=== PATIENT | male | born 1970 | race Caucasian/White ===

== ENCOUNTER 2021-03-21 11:15 | Outpatient (REF) | payer BC, SELFPAY ==
--- NOTE | ~2021-03-21 | XR_ITS ---
EXAMINATION: XR CHEST CLINICAL INFORMATION: Shortness of breath. History of Covid infection. COMPARISON: Previous chest and left rib x-rays March 2019 TECHNIQUE: 2 views of the chest were obtained. FINDINGS: The cardiac and mediastinal contours are stable. The lungs are clear. There is no pleural effusion or pneumothorax. There is mild curvature of the midthoracic spine to the right. Bony structures are otherwise unremarkable. XR/XR chest 2V IMPRESSION: No evidence for acute disease in the chest.
[2021-03-21 16:10] LABS: MANUAL DIFF FLAG NO
[2021-03-21 16:15] LABS: Basophils Absolute Auto 0.1 X10*3/uL (0.0-0.2); Basophils Percent Auto 0.5 % (0-2); Eosinophils Absolute Auto 0.3 X10*3/uL (0.0-0.4); Eosinophils Percent Auto 2.7 % (0-4); Hematocrit 48.8 % (42.0-52.0); Hemoglobin 15.9 g/dl (14.0-18.0); Imm Gran Abs Auto 0.04 X10*3/uL (0.00-0.03); Imm Gran Pct Auto 0.4 % (0.0-0.4); Lymphocytes Absolute Auto 2.6 X10*3/uL (1.2-4.9); Lymphocytes Percent Auto 24.1 % (20-40); Mean Corpuscular HGB Conc 32.6 g/dl (31.0-36.0); Mean Corpuscular Hemoglobin 29.2 pg (27.0-33.0); Mean Corpuscular Volume 89.5 fL (80.0-98.0); Mean Platelet Volume 9.8 fL (9.4-12.4); Monocytes Absolute Auto 0.7 X10*3/uL (0.1-1.2); Monocytes Percent Auto 6.7 % (2-11); Neutrophils Absolute Auto 7.2 x10*3/uL (2.0-8.3); Neutrophils Percent Auto 65.6 % (45-73); Platelet Count 366 X10*3/uL (160-400); Red Blood Count 5.45 X10*6/uL (4.60-5.80); Red Cell Distribution Width 12.7 % (11.0-16.0)
[2021-03-21 16:47] LABS: Alanine Aminotransferase 47 U/L (0-40); Albumin Level 4.2 g/dL (3.5-5.0); Alkaline Phosphatase 92 U/L (39-117); Anion Gap 12 (12-20); Aspartate Amino Transferase 28 U/L (5-37); Bilirubin Total 0.4 mg/dL (0.0-1.0); Blood Urea Nitrogen 10 mg/dL (9-16); C Reactive Protein 0.55 mg/dL (< or = 0.50); Calcium 9.9 mg/dL (8.4-10.2); Carbon Dioxide 29 mmol/L (22-29); Chloride 107 mmol/L (96-108); Estimated Glomerular Filt Rate > 60; Glucose Random 92 mg/dL (60-115); Sodium 143 mmol/L (135-145); Total Protein 7.6 g/dL (6.5-8.0)
[2021-03-21 16:58] LABS: Erythrocyte Sedimentation Rate 3 MM/HR (0-15)
== END 2021-03-21 11:16 | disposition home or self-care (01) ==
LOC: HO.XRAY 11:15
PROVIDERS: PCP Internal Medicine; Visit Provider Internal Medicine
DX: R06.02 Shortness of breath (principal); R51.9 Headache, unspecified; Z86.16 Personal history of COVID-19
CPT/HCPCS: 36415; 71046; 80053; 85025; 85652; 86140

== ENCOUNTER 2022-08-02 15:04 | Outpatient (REF) | payer BC, SELFPAY ==
[2022-08-02 15:22] LABS: MANUAL DIFF FLAG NO
[2022-08-02 15:44] LABS: Basophils Absolute Auto 0.1 X10*3/uL (0.0-0.2); Basophils Percent Auto 0.6 % (0-2); Eosinophils Absolute Auto 0.2 X10*3/uL (0.0-0.4); Eosinophils Percent Auto 1.9 % (0-4); Hematocrit 49.6 % (42.0-52.0); Hemoglobin 16.7 g/dl (14.0-18.0); Imm Gran Abs Auto 0.04 X10*3/uL (0.00-0.03); Imm Gran Pct Auto 0.4 % (0.0-0.4); Lymphocytes Absolute Auto 2.3 X10*3/uL (1.2-4.9); Lymphocytes Percent Auto 20.7 % (20-40); Mean Corpuscular HGB Conc 33.7 g/dl (31.0-36.0); Mean Corpuscular Hemoglobin 29.9 pg (27.0-33.0); Mean Corpuscular Volume 88.9 fL (80.0-98.0); Mean Platelet Volume 10.2 fL (9.4-12.4); Monocytes Absolute Auto 0.8 X10*3/uL (0.1-1.2); Monocytes Percent Auto 7.3 % (2-11); Neutrophils Absolute Auto 7.7 x10*3/uL (2.0-8.3); Neutrophils Percent Auto 69.1 % (45-73); Platelet Count 341 X10*3/uL (160-400); Red Blood Count 5.58 X10*6/uL (4.60-5.80); Red Cell Distribution Width 12.9 % (11.0-16.0); White Blood Count 11.2 X10*3/uL (4.8-10.8)
[2022-08-02 16:29] LABS: Erythrocyte Sedimentation Rate 7 MM/HR (0-15)
[2022-08-02 16:30] LABS: Alanine Aminotransferase 64 U/L (0-40); Albumin Level 4.3 g/dL (3.5-5.0); Alkaline Phosphatase 78 U/L (39-117); Amylase 36 U/L (28-100); Anion Gap 14 (12-20); Aspartate Amino Transferase 40 U/L (5-37); Blood Urea Nitrogen 12 mg/dL (9-16); C Reactive Protein 1.67 mg/dL (< or = 0.50); Calcium 9.6 mg/dL (8.4-10.2); Carbon Dioxide 23 mmol/L (22-29); Chloride 106 mmol/L (96-108); Estimated Glomerular Filt Rate > 60; Glucose Random 91 mg/dL (60-115); Lipase 26 U/L (8-78); Potassium 4.2 mmol/L (3.3-5.1); Sodium 139 mmol/L (135-145); Total Protein 7.6 g/dL (6.5-8.0)
[2022-08-02 18:00] LABS: Appearance Urine Clear; Color Urine Dark Yellow; Glucose Urine UA Negative (Negative); Leukocyte Esterase Urine Negative (Negative); Nitrite Urine Negative (Negative); Specific Gravity - Urine >= 1.030 (1.005-1.025); UMIC TRIGGER UA YES; Urine Blood Negative (Negative); Urine Ketones 40 mg/dL (Negative); Urine Protein 30 (1+) mg/dL (Neg-Trace)
[2022-08-02 18:17] LABS: Bacteria Urine None Seen (None Seen); RBC Urine 0-2 /HPF (0-2); Squamous Epithelial Cell Urine 0-2 /HPF (0-2); WBC Urine 0-5 /HPF (0-5)
== END 2022-08-02 15:05 | disposition home or self-care (01) ==
LOC: HO.LAB 15:04
PROVIDERS: PCP Internal Medicine; Visit Provider Internal Medicine
DX: R10.9 Unspecified abdominal pain (principal); R19.7 Diarrhea, unspecified
CPT/HCPCS: 36415; 80053; 81001; 82150; 83690; 85025; 85652; 86140

== ENCOUNTER 2022-08-03 15:24 | Outpatient (REF) | payer BC, SELFPAY ==
--- NOTE | ~2022-08-03 | US_ITS ---
EXAMINATION: US ABDOMEN COMPLETE CLINICAL INFORMATION: Epigastric pain. COMPARISON: CT abdomen and pelvis 11/15/2010 TECHNIQUE: Real-time imaging of the abdominal viscera. Technically suboptimal study secondary to bowel gas and body habitus. FINDINGS: PANCREAS: The visualized portions of the pancreas are unremarkable but a large portion of the gland is obscured by bowel gas. ABDOMINAL AORTA: The proximal and mid abdominal aorta is not seen secondary to overlying bowel gas. The distal abdominal aorta is normal in caliber without aneurysm. INFERIOR VENA CAVA: Visualized portions are normal. LIVER: The liver is normal in size. The liver contour is normal. There is diffuse increased liver parenchymal echogenicity, consistent with hepatic steatosis. No focal hepatic lesion. There is no intrahepatic biliary duct dilatation seen. GALLBLADDER: Normal. The gallbladder is physiologically distended without evidence of stones, sludge, polyps, wall thickening or pericholecystic fluid. COMMON BILE DUCT: Normal in caliber measuring 0.54 cm in diameter. RIGHT KIDNEY: Normal. No hydronephrosis. No renal calculi or focal parenchymal lesions. The kidney measures 12.3 cm in maximum dimension. LEFT KIDNEY: Normal. No hydronephrosis. No renal calculi or focal parenchymal lesions. The kidney measures 13.3 cm in maximum dimension. SPLEEN: The spleen is enlarged measuring 15.1 cm in maximum dimension. On the 11/15/2010 CT, the spleen measured 14 cm. FREE FLUID: None. US/US abdomen complete IMPRESSION: 1. Hepatic steatosis. 2. Splenomegaly.
== END 2022-08-03 15:25 | disposition home or self-care (01) ==
LOC: HO.HMGCX 15:24
PROVIDERS: PCP Internal Medicine; Visit Provider Internal Medicine
DX: R10.13 Epigastric pain (principal)
CPT/HCPCS: 76700

== ENCOUNTER 2022-10-31 14:02 | Emergency (ER) | payer BC, SELFPAY ==
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
[2022-10-31 14:35] VITALS: BP 164/113; PULSE 78; RESP 16; TEMP 37.3; O2SAT 97; BMI 33.3
[2022-10-31] MEDS: Acetaminophen 325 MG TABLET 975 MG PO (18:48)
[2022-10-31] MEDS: Ibuprofen 400 MG TABLET PO (18:48)
== END 2022-10-31 19:07 | disposition home or self-care (01) ==
PROVIDERS: Emergency Provider Student in an Organized Health Care Education/Training Program; PCP Internal Medicine
DX: S06.0XAA Concussion with loss of consciousness status unknown, initial encounter (principal); S00.03XA Contusion of scalp, initial encounter; S80.212A Abrasion, left knee, initial encounter; S90.412A Abrasion, left great toe, initial encounter; S50.01XA Contusion of right elbow, initial encounter; V03.00XA Pedestrian on foot injured in collision with car, pick-up truck or van in nontraffic accident, initial encounter; M54.2 Cervicalgia; M54.50 Low back pain, unspecified; M25.572 Pain in left ankle and joints of left foot; Y93.01 Activity, walking, marching and hiking; Y92.414 Local residential or business street as the place of occurrence of the external cause; Y99.9 Unspecified external cause status
CPT/HCPCS: 70450; 72100; 72125; 73562; 73600; 73620; 99283; 99284

== ENCOUNTER 2023-01-11 13:51 | Outpatient (REF) | payer BC, SELFPAY ==
--- NOTE | ~2023-01-11 | XR_ITS ---
EXAMINATION: XR LUMBOSACRAL SPINE WITH OBLIQUES CLINICAL INFORMATION: Lumbar radiculopathy. COMPARISON: Radiographs dated 10/31/2022. TECHNIQUE: AP and lateral (neutral, flexion and extension) views of the lumbosacral spine are submitted. FINDINGS: There is mild bony demineralization. Vertebral body heights and alignment are normal. The lumbar disc spaces are well-maintained. No acute fracture or spondylolisthesis is seen. There is no instability with flexion or extension. There is multi-level mild anterior spondylosis. The posterior elements are intact. The paravertebral soft tissues are unremarkable. XR/XR lumbar spine 4V min IMPRESSION: 1. No acute fracture or spondylolisthesis is seen. 2. The lumbar disc spaces are well-maintained. 3. There is multi-level mild anterior spondylosis. 4. No instability is seen with flexion or extension.
== END 2023-01-11 13:52 | disposition home or self-care (01) ==
LOC: HO.HOSX 13:51
PROVIDERS: PCP Internal Medicine; Referring Provider Internal Medicine; Visit Provider Physician Assistant
DX: M54.16 Radiculopathy, lumbar region (principal)
CPT/HCPCS: 72110

== ENCOUNTER 2023-01-11 13:51 | Outpatient (AMB) | payer BC, SELFPAY ==
--- NOTE | 2023-01-11 13:58 | HO.SPINEOV ---
Intake Intake Visit Reasons: Low back pain Intake Note: Mr. Saha is here today c/o low back pain. [employer] Required: No Allergies No Known Allergies [No Known Allergies*] Allergy (Verified 10/31/22 14:38) Assessment & Plan Assessment & Plan (1) Lumbar radiculopathy: Code(s): M54.16 - Radiculopathy, lumbar region Plan Dear Dr Romero, Thank you for referring Mr Saha to our office today. He is a very nice 52-year-old gentleman with previous history of an L5-S1 diskectomy done in 1999 who presents to the office today for progressive severe right-sided lumbar radiculopathy which started a few months ago. It began with milder symptoms, but progressed pretty rapidly to his severe pain. It radiates from his low back down into his right buttock, goes into his right groin, goes into his posterior thigh down into his calf. It does not go into his foot. The symptoms are aggravated with standing and walking and better if he sits. He does not report any specific weakness, however the leg does feel like it may go out from underneath him from time to time. He has been taking ibuprofen and Tylenol around the clock. He did try steroids twice and that did help but the fact was temporary. He has been doing therapy exercises now for a few months as well as traction and inversion tables without any significant improvement. He is getting to the point now where he is can barely get up and walk around and seems to have significantly affected his quality of life. He continues to work but he has to work in a recumbent position in his office. Thankfully his employer bought him a chair to accommodate him. PMH: No significant medical history, history of lumbar diskectomy in 1999 Social hx: He does not smoke, social alcohol no drug use Medications: Citalopram, bupropion, Tylenol and ibuprofen Allergies: None Physical exam: He has a significant amount of pain with standing and walking, he has no focal motor deficits or reflex changes. Imaging review: Lumbar MRI done at [facility] shows multilevel degenerative disc disease, the only nerve impingement I can see is on the right at L4-5 in the lateral recess there appears to be narrowing. It is not a great study, there is motion artifact. Impression: 52-year-old male with a previous history of a left L5-S1 microdiskectomy about 20 years ago, presents now with a progressive worsening right L5 radiculopathy which I think is related to the narrowing of the lateral recess at the L4-5 disc space. There is some motion artifact which limits the quality of the study but is is the only area that I see with narrowing near the L5 nerve He has been doing ibuprofen, Tylenol, therapy exercises, inversion table, traction, heat, ice and things only seem to be getting worse. He has no focal motor deficits. I think at this point we could consider an L4-5 decompression on the right. I am going to send him for standing flexion-extension x-rays to rule out occult instability. We briefly reviewed the risks and benefits of surgery. I will review his imaging with Dr. Ortiz and get back to the patient with a final plan. Pt was given risk and benefits of surgery including but not limited to infection, hematoma , nerve injury,durotomy, weakness,bowel/bladder injury, persistent pain, as well as the option to continue with conservative treatment and patient wishes to proceed with surgery. Pt is aware they should stop their motrin, aspirin 7 days prior to surgery. All questions were answered to the best of our ability. If there is anything about this patients medical history that we have overlooked or concerns you have about us proceeding with surgery we would appreciate any input you can offer. Thank you for allowing us to care for your patient. The total time spent with this visit with this patient was 45 minutes reviewing history, physical exam, lumbar imaging review, and implementation of treatment plan or further diagnostic testing Keyur Ortiz MD,PhD [facility] Orders: Orders XR lumbar spine 4V min Today M54.16 - Radiculopathy, lumbar region Coding Level of Care Code New Pt Level 4 (48452) Diagnoses Lumbar radiculopathy M54.16
== END 2023-01-11 15:15 | disposition home or self-care (01) ==
PROVIDERS: PCP Internal Medicine; Referring Provider Internal Medicine; Visit Provider Physician Assistant
DX: M54.16 Radiculopathy, lumbar region (principal)
CPT/HCPCS: 99204

== ENCOUNTER → 2023-03-14 13:58 | Outpatient (BNV) | payer BC, SELFPAY | PROVIDERS: PCP Internal Medicine; Visit Provider Internal Medicine | DX: I45.81 Long QT syndrome (principal) | CPT/HCPCS: 93010 ==

== ENCOUNTER 2023-03-28 10:14 | Day surgery (SDC) | payer BC, SELFPAY ==
--- NOTE | 2023-03-14 | ECG_ITS ---
Test Reason : preop Blood Pressure : / mmHG Vent. Rate : 073 BPM Atrial Rate : 073 BPM P-R Int : 160 ms QRS Dur : 108 ms QT Int : 446 ms P-R-T Axes : 055 -38 022 degrees QTc Int : 491 ms Normal sinus rhythm Left axis deviation Minimal voltage criteria for LVH, may be normal variant ( R in aVL ) Prolonged QT Abnormal ECG When compared with ECG of 18-DEC-2012 07:28, No significant change was found Referred By: Alexsandra Jolly Electronically Signed By:CHASTITY CRISTINA
[2023-03-14 13:23] VITALS: BMI 32.8
[2023-03-14 13:30] VITALS: BP 158/95; PULSE 75; RESP 20; O2SAT 97
--- NOTE | 2023-03-14 13:41 | HO.ANESPROP2 ---
Documented by User: Alexsandra Jolly NP 03/14/23 14:07 HPI - Anesthesia Eval Consult details Narrative: 52yo M for Right L4-5 Jimbo Laminotomy No recent illness. No CP/SOB within very limited activity d/t pain Multiple episodes of awareness under anesthesia. GERD. Well controlled with ppi PMFSH Active Problems Active Problems: All Active Problems (Updated 03/14/23 @ 13:18 by Gricelda Mills RN) Lumbar radiculopathy (Acute) Past Medical History Medical History Cellulitis Hx of fracture of ankle Anxiety Gout GERD (gastroesophageal reflux disease) Obesity (BMI 30.0-34.9) Other chest pain HTN (hypertension) Colitis Gastroenteritis Epigastric abdominal pain Nocturia Back pain Depression Family History Family history of problems with anesthesia: No Surgical History Surgical History History of ankle surgery Hx of arthroscopy of right knee H/O colonoscopy Hx of right inguinal hernia repair Hx of lumbar discectomy History of Problems with Anesthesia: Yes (Awareness under anesthesia. Has awoken mid surgery under all types of anesthesia. Reports extensive movement ( push up ) during lumbar discectomy.) Social History Social History Are you a primary home care coordinator to a significant other at home: No Patient Tobacco Use Status: Never used Tobacco Use of substances other than those prescribed or required for medical reasons: No Have you been hit, kicked, punched, or otherwise hurt by someone within the past year? If so, by whom?: No Advance Directives: No Advance Directives Information Provided: Yes Advance Directives on File: No Recently lost weight without trying: No Eating poorly because of decreased appetite: No Nutrition Risks: No Nutritional Risk Meds Allergies Allergy/AdvReac Type Severity Reaction Status Date / Time No Known Allergies Allergy Verified 03/28/23 10:28 [No Known Allergies*] Home Medications Medication Instructions Recorded Confirmed Last Taken Type bupropion HCl 150 mg 24 hr tablet, 150 mg PO DAILY 03/13/23 03/28/23 Unknown History extended release citalopram 40 mg tablet 40 mg PO DAILY 03/13/23 03/28/23 Unknown History tadalafil 10 mg tablet 10 mg PO Q3D PRN Sexual Activity 03/13/23 03/28/23 Unknown History Exam Height,Weight and Vital Signs: Height 6 ft 5 in Weight 125.645 kg Last Vital Signs Pulse 75 03/14/23 13:30 Resp 20 03/14/23 13:30 BP 158/95 H 03/14/23 13:30 Pulse Ox 97 03/14/23 13:30 O2 Del Method Room Air 03/14/23 13:30 Airway Mallampati Class: II TM Dist: >3cm Neck ROM: Full Loose/Missing/Broken Teeth: Yes (broken lower sides) Heart: RRR Lungs: CTAB Assessment and Plan Assessment Anesthesia Assessment: Anesthesia Plan Discussed and PAT Visit Final Anesthetic Review Family History of Problems with Anesthesia: No History of Problems with Anesthesia: Yes (Awareness under anesthesia. Has awoken mid surgery under all types of anesthesia. Reports extensive movement ( push up ) during lumbar discectomy.) Documented by User: Lenin Sarabia MD 03/28/23 10:36 PMFSH Past Medical History Medical History Cellulitis Hx of fracture of ankle Anxiety Gout GERD (gastroesophageal reflux disease) Obesity (BMI 30.0-34.9) Other chest pain HTN (hypertension) Colitis Gastroenteritis Epigastric abdominal pain Nocturia Back pain Depression Surgical History Surgical History History of ankle surgery Hx of arthroscopy of right knee H/O colonoscopy Hx of right inguinal hernia repair Hx of lumbar discectomy Social History Social History Are you a primary home care coordinator to a significant other at home: No Patient Tobacco Use Status: Never used Tobacco Use of substances other than those prescribed or required for medical reasons: No Have you been hit, kicked, punched, or otherwise hurt by someone within the past year? If so, by whom?: No Advance Directives: No Advance Directives Information Provided: Yes Advance Directives on File: No Recently lost weight without trying: No Eating poorly because of decreased appetite: No Nutrition Risks: No Nutritional Risk Meds Allergies Allergy/AdvReac Type Severity Reaction Status Date / Time No Known Allergies Allergy Verified 03/28/23 10:28 [No Known Allergies*] Home Medications Medication Instructions Recorded Confirmed Last Taken Type bupropion HCl 150 mg 24 hr tablet, 150 mg PO DAILY 03/13/23 03/28/23 Unknown History extended release citalopram 40 mg tablet 40 mg PO DAILY 03/13/23 03/28/23 Unknown History tadalafil 10 mg tablet 10 mg PO Q3D PRN Sexual Activity 03/13/23 03/28/23 Unknown History Exam Airway Mallampati Class: III Assessment and Plan Final Anesthetic Review NPO: Yes ASA Class: II Final Preanesthetic Review: No Changes in Pt Med Stat, Meds/Allgs Chart Reviewed, Consent Obtained/Reviewed and Anes Risks/Benef Reviewed Patient Risk: Intermediate Procedure Risk: Intermediate Assessment/Block/Sedation in SS: Assess/Block/Sedation- Anesthetic Plan Anesthetic Plan: GA Disposition: Standard PACU
[2023-03-14 14:33] LABS: Hematocrit 47.6 % (42.0-52.0); Hemoglobin 15.9 g/dl (14.0-18.0); Mean Corpuscular HGB Conc 33.4 g/dl (31.0-36.0); Mean Corpuscular Hemoglobin 29.6 pg (27.0-33.0); Mean Corpuscular Volume 88.6 fL (80.0-98.0); Mean Platelet Volume 9.5 fL (9.4-12.4); Platelet Count 344 X10*3/uL (160-400); Red Blood Count 5.37 X10*6/uL (4.60-5.80); White Blood Count 8.8 X10*3/uL (4.8-10.8)
[2023-03-14 15:11] LABS: Anion Gap 13 (12-20); Blood Urea Nitrogen 8 mg/dL (9-16); Calcium 9.5 mg/dL (8.4-10.2); Carbon Dioxide 28 mmol/L (22-29); Chloride 104 mmol/L (96-108); Creatinine Clr Calc Pharmacy 145.7; Estimated Glomerular Filt Rate > 60; Glucose Random 76 mg/dL (60-115); Potassium 4.4 mmol/L (3.3-5.1); Sodium 141 mmol/L (135-145)
[2023-03-28] VITALS (7 sets, daily range): BP systolic 124–201; BP diastolic 76–112; PULSE 65–85; RESP 14–18; TEMP 36.4–36.6; O2SAT 94–97; BMI 33.1
--- NOTE | ~2023-03-28 | FL_ITS ---
EXAMINATION: XR FLUOROSCOPY WITH IMAGES CLINICAL INFORMATION: Right L4-L5 hemilaminotomy. COMPARISON: None available. TECHNIQUE: Fluoroscopy Supervised By: Dr. Ortiz. Fluoroscopy Time: 0.0 minutes Cumulative Dose: 4.58 mGy-cm DAP: 0.0797 Gy-cm2 Images: 2 FINDINGS: Fluoroscopic guidance was provided for procedure. A catheter projects at the level of the lower lumbar spine.. Please refer to operative report for more detailed evaluation. FL/FL guidance in OR IMPRESSION: Fluoroscopic guidance was provided for procedure.
--- NOTE | 2023-03-28 06:57 | P.HPSUR_ITS ---
Pre-Procedural Eval Section A - 24 Hr Update-Section A only Date of Service: 03/28/23 The patient is an INPATIENT: No Changes since office visit: No Cold of Flu in the past 2 weeks, No New Medical Problems, No Changes in Medication and No Patient answered all questions The patient has been examined within 24 hours of the surgical procedure. The History & Physical has been completed within 30 days and I have reviewed it.: No Section B - Complete if H&P > 30 days Chief Complaint: Radiculopathy, lumbar region Allergies: Allergies Allergy/AdvReac Type Severity Reaction Status Date / Time No Known Allergies Allergy Verified 10/31/22 14:38 [No Known Allergies*] Review of Systems Sugical H&P ROS: Negative: Constitution, Cardiovascular, Respiratory, Neurological, Psychiatric, Hem-Onc, Allergic/Immunologic, Gastrointestinal, Genitourinary, Musculoskeletal, Integumentary, Endocrine and Eyes/Ears/No se/Throat Exam Surgical H&P Exam: Not Evaluated: HEENT, Not Evaluated: Heart, Not Evaluated: Lungs, Not Evaluated: Extremities, Not Evaluated: Abdomen, Not Evaluated: Skin and Not Evaluated: Neurological Plan Diagnosis/Plan: Unchanged right L4-5 decompression Time Spent With Patient Time: Total time managing care of this patient today ___6_ minutes.
[2023-03-28] MEDS: Gabapentin 300 MG CAPSULE PO (10:43)
[2023-03-28] MEDS: methocarbamoL 750 MG TABLET PO (10:43)
[2023-03-28] MEDS: Lactated Ringers 1,000 ML 100 ML IVCONT (10:58)
--- NOTE | 2023-03-28 12:14 | P.OP_ITS ---
Operative Note Operative Note Date of Service: 03/28/23 Narrative: Preoperative Diagnosis: L4-5 spinal stenosis/lateral recess stenosis/neural foraminal stenosis Operation: Right L4-5 Laminotomy, Partial facetectomy and foraminotomy with use of microscope Consent Informed Consent was obtained for this operation. I have explained the nature, purpose and benefits of the operation. I have discussed the risks and benefit of the operation including possible complications or adverse events with patient/family. Alternative(s) were discussed with the patient with their relative benefits and risks as well as the consequences of not accepting the operation were included in obtaining consent. Surgeon: ANGUS ULLAO MD, PHD Procedure Assisted By: Keyur Blake Description of Procedure This patient is suffering from unilateral neurogenic claudication due to L4-5 lateral recess stenosis on the right side. The patient was offered a decompression. The procedure complications were explained. The patient was consented. The patient was brought to the operating room and endotracheally intubated. The patient was turned in prone position on the Erick frame. Prep and drape was done followed by timeout. The Physician assistant offset press operator provided access. A mid lumbar incision was made followed by release of the paravertebral muscle on the right side to expose the L4-5 lamina and facet joints. An intraoperative x-ray was obtained to confirm the correct level. The microscope was brought in. I took over the procedure. The high-speed drill was used to do a L4-5 laminotomy until flavum ligament was reached. A #2 Kerrison was used to expand the laminotomy near flush to the pedicles and to include a partial facetectomy. The flavum ligament was opened and resected with a #3 Kerrison to decompress the underlying thecal sac. The flavum ligament was removed to decompress the lat eral recess and the exiting L5 nerve root. A long nerve hook could be easily passed along the medial side of the pedicles as a sign of adequate decompression. The microscope was removed. Hemostasis was done. The physician assistant offset press operator close the Incision in 2 layers. Steri-Strips were used to approximate incision. An OpSite with Tegaderm was used to cover the incision. All sponge needle counts were correct. Patient was extubated and transported in stable is to recovery room. Anesthesia: General Estimated Blood Loss (ml): 20 mL Complications: None Duration of Surgery: Under 60 Minutes Postoperative Plan: Discharge to home
--- NOTE | 2023-03-28 12:23 | P.DS_ITS ---
DS: Providers Provider Date of Service: 03/28/23 Primary care physician: Leon Romero MD DS: Summary Time Attestation Discharge coordination time: Less than 30 minutes Quality: Safe Use of Opioids Does Pt have an Active Cancer Diagnosis on the Problem List?: No Quality: Stroke Does the patient have a stroke diagnosis?: No Physical Exam Vital Signs: Vital Signs: Last Vital Signs Temp 97.6 F 03/28/23 10:39 Pulse 65 03/28/23 10:39 Resp 16 03/28/23 10:39 BP 201/112 H 03/28/23 10:39 Pulse Ox 96 03/28/23 10:39 O2 Del Method Room Air 03/28/23 10:39 BMI result Body Mass Index 33.1 Discharge Plan Discharge Patient Disposition: Home, Self-Care Referrals: Leon Romero MD [Primary Care Provider] - 1 Week Discharge Medications: New oxycodone 5 mg tablet 5 mg PO Q6H PRN (Reason: severe pain (scale score 7-10)) Qty: 30 0RF Rx Instructions: Partial Fill upon patient request. Continued citalopram 40 mg tablet 40 mg PO DAILY bupropion HCl 150 mg tablet extended release 24 hr 150 mg PO DAILY tadalafil 10 mg tablet 10 mg PO Q3D PRN (Reason: Sexual Activity) Discharge Orders: Discharge Order (Routine); Ordered 03/28/23 Ordered By: Cesar Becerra Diet: Advance to usual diet Activity on Discharge: As tolerated Activity Restrictions/Additional Instructions: After your spinal surgery we ask you to observe the following restrictions/guidelines: Activity: It is normal to feel some discomfort as you increase your activity, but that will improve with time. We ask you avoid heavy lifting or acitivities that cause pain. As a general rule, 8lbs is a safe limit for lifting right after surgery. Walk as much as you feel comfortable but not to exhaustion. You will feel extra tired the first few days after surgery. Stay well hydrated. It is OK to walk up and down stairs You may return to driving when you are off narcotics (such as vicodin, oxycodone, dilaudid, etc), and you are back to normal functional capacity. If you have any concerns please check with office before driving. Return to work is specific to each patient and each surgery, so please speak with your doctor/PA at first follow up. Please bring paperwork such as FMLA at that time if you need it filled out. Medications: We will give you a short supply of narcotics after surgery (usually one weeks worth). If you need more please call the office but do not use more than prescribed. You will need to give our office 48 hours notice if you need narcotics refilled and we do not fill narcotics on weekends or evenings. If you are on a narcotic, it is a good idea to take a stool softener such as colace or senna to avoid constipation If you take blood thinner such as aspirin, Plavix, Coumadin, Effient, Eliquis etc for conditions such as Afib, DVT, Pulmonary embolus, coronary disease, sten ts etc please speak with your surgeon about specific details as to when you can resume these medications. You can resume NSAIDs on post op day 1 (eg: Motrin, Naproxen, etc). Follow up: Please call the office, , after surgery to arrange a 3 week follow up for wound check. Wound Care: You may remove your dressing on the first day after surgery. ?You may ?leave open to air. Please do not remove the steri strips underneath. they will fall off on their own in one week. IT IS NORMAL FOR THE WOUND TO OOZE OR BE BLOODY FOR A FEW DAYS AFTER SURGERY. ?IF THIS HAPPENS JUST PLACE NEW DRESSING OVER IT TO AVOID STAINING CLOTHES. You may shower on post op day # 1 We ask that you do not let the water soak the wound. If it does get wet, just towel dry lightly. Please do not scrub your incision or place any type of chemical/ointment on the wound. No tub baths, pools or jacuzzis for one month. If you have any leaking or redness from your wound, or fevers, please call the office.
== END 2023-03-28 14:21 | disposition home or self-care (01) ==
PROVIDERS: Nurse Practitioner; PCP Internal Medicine; Visit Provider Neurological Surgery
PROC: (CPT 63047; principal; 2023-03-28 12:40)
DX: M54.16 Radiculopathy, lumbar region (principal); M48.062 Spinal stenosis, lumbar region with neurogenic claudication; M10.9 Gout, unspecified; I10 Essential (primary) hypertension; F32.A Depression, unspecified; F41.9 Anxiety disorder, unspecified; Z79.899 Other long term (current) drug therapy; Z98.890 Other specified postprocedural states
CPT/HCPCS: 63047; 36415; 80048; 85027; 93005; J0131; J0690; J1100; J1170; J2250; J2371; J2405; J2704; J3010

== ENCOUNTER → 2023-03-28 10:14 | Outpatient (BNV) | payer BC, SELFPAY | PROVIDERS: PCP Internal Medicine; Visit Provider Neurological Surgery | DX: M54.16 Radiculopathy, lumbar region (principal) | CPT/HCPCS: 63047; 99499 ==

== ENCOUNTER 2023-04-18 09:11 | Outpatient (AMB) | payer BC, SELFPAY ==
--- NOTE | 2023-04-18 09:18 | A.SPINEOV_ITS ---
Intake Intake Visit Reasons: 1st post op Intake Note: Mr. aSha is here today for his first post op visit. Carpenter Inspector Required: No Allergies No Known Allergies [No Known Allergies*] Allergy (Verified 03/28/23 10:28) Assessment & Plan Assessment & Plan (1) Lumbar radiculopathy: Code(s): M54.16 - Radiculopathy, lumbar region Plan Procedure: Right L4-5 Laminotomy, Partial facetectomy and foraminotomy Kem comes in today for his 1st postoperative visit. He reports the 1st few day s postoperatively his pain was completely relieved on the right side. Unfortunately over the course of the last couple of weeks his pain has returned and waxes/wanes throughout the day. He was encouraged that he likely is suffering from postoperative inflammation that should resolve over the course of the next few weeks. I encouraged him to start taking 1000 mg of Tylenol 3 times a day, and to start setting a goal to walk 1/2 - 1 mile per day, as he is currently spending most of the day on his couch or in his recliner. We also discussed return to work, which he states he would like to go back on April 30. This seems reasonable. No new neurological deficits. Sensation grossly intact. Patient is able to ambulate well, rises from a seated position without difficulty. Incision site is closed, well healing, with no signs of drainage. We will follow-up with the patient in 6 weeks for his 2nd postoperative visit. At that time we will get x-rays to review with the patient. Cesar Ortzi MD,PhD [facility] Coding Level of Care Code Global (05749) Diagnoses Lumbar radiculopathy M54.16
== END 2023-04-18 09:41 | disposition home or self-care (01) ==
PROVIDERS: PCP Internal Medicine; Visit Provider Physician Assistant
DX: M54.16 Radiculopathy, lumbar region (principal)
CPT/HCPCS: 99024

== ENCOUNTER → 2023-04-18 09:11 | Outpatient (BNVA) | payer BC, SELFPAY | PROVIDERS: PCP Internal Medicine; Visit Provider Physician Assistant ==

== ENCOUNTER 2023-05-29 09:31 | Outpatient (REF) | payer BC, SELFPAY | END 2023-05-29 09:32 | disposition home or self-care (01) | LOC: HO.HOSX 09:31 | PROVIDERS: Visit Provider Physician Assistant | DX: Z13.89 Encounter for screening for other disorder (principal) ==

== ENCOUNTER 2023-09-05 12:00 | Outpatient (REF) | payer BC, SELFPAY ==
[2023-09-05 13:05] LABS: MANUAL DIFF FLAG NO
[2023-09-05 13:22] LABS: Basophils Absolute Auto 0.1 X10*3/uL (0.0-0.2); Basophils Percent Auto 0.7 % (0-2); Eosinophils Absolute Auto 0.2 X10*3/uL (0.0-0.4); Eosinophils Percent Auto 2.8 % (0-4); Hematocrit 46.7 % (42.0-52.0); Hemoglobin 15.7 g/dl (14.0-18.0); Imm Gran Abs Auto 0.03 X10*3/uL (0.00-0.03); Imm Gran Pct Auto 0.3 % (0.0-0.4); Lymphocytes Absolute Auto 2.3 X10*3/uL (1.2-4.9); Lymphocytes Percent Auto 26.9 % (20-40); Mean Corpuscular HGB Conc 33.6 g/dl (31.0-36.0); Mean Corpuscular Hemoglobin 29.9 pg (27.0-33.0); Mean Platelet Volume 9.7 fL (9.4-12.4); Monocytes Absolute Auto 0.6 X10*3/uL (0.1-1.2); Monocytes Percent Auto 7.3 % (2-11); Neutrophils Absolute Auto 5.4 x10*3/uL (2.0-8.3); Platelet Count 352 X10*3/uL (160-400); Red Blood Count 5.25 X10*6/uL (4.60-5.80); Red Cell Distribution Width 13.1 % (11.0-16.0); White Blood Count 8.7 X10*3/uL (4.8-10.8)
[2023-09-05 13:41] LABS: Alanine Aminotransferase 52 U/L (0-40); Albumin Level 4.4 g/dL (3.5-5.0); Alkaline Phosphatase 72 U/L (39-117); Anion Gap 12 (12-20); Aspartate Amino Transferase 41 U/L (5-37); Bilirubin Total 0.6 mg/dL (0.0-1.0); Blood Urea Nitrogen 8 mg/dL (9-16); Calcium 9.9 mg/dL (8.4-10.2); Carbon Dioxide 27 mmol/L (22-29); Chloride 105 mmol/L (96-108); Cholesterol 211 mg/dL (<200); Estimated Glomerular Filt Rate > 60; Glucose Fasting 95 mg/dL (60-99); HDL Cholesterol 58 mg/dL (>40); LDL Cholesterol Calculated 137 mg/dL (<100); Potassium 4.5 mmol/L (3.3-5.1); Sodium 139 mmol/L (135-145); Total Protein 7.8 g/dL (6.5-8.0); Triglycerides 83 mg/dL (<150)
[2023-09-05 13:55] LABS: Prostate Specific Antigen Scr 1.35 ng/mL (<0.05-4.0)
== END 2023-09-05 12:01 | disposition home or self-care (01) ==
LOC: HO.10HDL 12:00
PROVIDERS: Visit Provider Internal Medicine
DX: I10 Essential (primary) hypertension (principal); K21.9 Gastro-esophageal reflux disease without esophagitis; Z12.5 Encounter for screening for malignant neoplasm of prostate; M54.50 Low back pain, unspecified
CPT/HCPCS: 36415; 80053; 80061; 84153; 85025

== ENCOUNTER 2024-05-11 16:09 | Outpatient (AMB) | payer BC, SELFPAY ==
--- NOTE | 2024-05-11 16:13 | MHC.OFFWIV ---
Intake Vital Signs 05/11/24 16:14 Height 6 ft 6 in Weight 294 lb BMI 34.0 BP 120/80 Blood Pressure Location Rt brachial Position Sitting Pulse 63 Pulse Source Pulse Oximeter Pulse Oximetry (%) 99 Oxygen Delivery Method Room Air Intake Visit Reasons: EP-?lt eye infection Intake Note: Patient here for left eye infection that has been present for about 1 week now. Patient Tobacco Use Status: Never used Tobacco Allergies No Known Allergies [No Known Allergies*] Allergy (Verified 05/11/24 16:15) Do you need a note to return to daycare/school/sports/work: No HPI HPI Comments History of Present Illness Details 53 y/o male patient who presents to the walk in clinic with c/o left eye pain, watery, and redness for 1 week. Does endorse URI symptoms for 1 week now; Nasal congestion and headaches. [facility] Medical History (Updated 05/11/24 @ 16:29 by María Cueto NP) Bacterial conjunctivitis Cellulitis Hx of fracture of ankle Anxiety Gout GERD (gastroesophageal reflux disease) Obesity (BMI 30.0-34.9) Other chest pain HTN (hypertension) Colitis Gastroenteritis Epigastric abdominal pain Nocturia Back pain Depression Surgical History History of ankle surgery Hx of arthroscopy of right knee H/O colonoscopy Hx of right inguinal hernia repair Hx of lumbar discectomy Social History Are you a primary managed care coordinator to a significant other at home: No Patient Tobacco Use Status: Never used Tobacco Review of Systems Const All systems reviewed & are unremarkable except as noted in HPI and below Physical Exam Vital Signs: Last Vital Signs Pulse 63 05/11/24 16:14 BP 120/80 05/11/24 16:14 Pulse Ox 99 05/11/24 16:14 Oxygen Delivery Method Room Air 05/11/24 16:14 BMI result Body Mass Index 34.0 Const General: cooperative and no acute distress Nutritional Appearance: obese Orientation/consciousness: patient oriented x3 HEENT Head: Yes normocephalic Ears: external ears normal and TM abnormal bulging bilateral and with fluid behind the TM bilateral General nose exam: Nasal discharge present Face and sinus: Yes sinus tenderness Face images: 1. Mild redness and TTP Mouth: moist mucous membranes Throat: Yes uvula midline and Yes postnasal drainage Eyes Conjunctivae: conjunctival abnormal left (Redness) conjunctival injection and diffuse Pupils: Equal, round and reactive pupils present EOM: EOMs intact bilaterally Resp Effort & Inspection: normal respiratory effort and able to speak in complete sentences Auscultation: clear to auscultation bilaterally, no crackles, no rales, no rhonchi and no wheezes Cardio Heart sounds: S1 normal heart sound present and S2 normal heart sound present Neuro General: patient oriented x3 Cranial nerves: Yes Equal, round and reactive pupils present Assessment & Plan Assessment & Plan (1) Bacterial conjunctivitis: Code(s): H10.9 - Unspecified conjunctivitis Plan: Ordered Abx Eye drops Advised to f/u with an eye doctor if symptoms worse. Medications: New ciprofloxacin HCl 0.3% PUT 2 DROPS IN THE AFFECTED EYE EVERY 2 HOURS UP TO 8 TIMES/DAY FOR 2 DAYS; THEN 4 TIMES/DAY FOR 5 DAYS. 5 mL 0RF H10.9 - Unspecified conjunctivitis Discontinued oxycodone Partial Fill upon patient request. Discontinued Reason: Patient no longer taking 5 mg PO Q6H PRN 30 tabs 0RF severe pain (scale score 7-10) Coding Level of Care Code Est Pt Level 4 (21826) Diagnoses Bacterial conjunctivitis H10.9 Time Spent (min) 20
[2024-05-11 16:14] VITALS: BP 120/80; PULSE 63; O2SAT 99; BMI 34.0
== END 2024-05-11 16:42 | disposition home or self-care (01) ==
PROVIDERS: PCP Internal Medicine; Visit Provider Nurse Practitioner Family
DX: H10.9 Unspecified conjunctivitis (principal)

== ENCOUNTER 2024-11-24 07:58 | Outpatient (AMB) | payer BC, SELFPAY ==
--- NOTE | 2024-11-24 07:59 | A.OFFPC_ITS ---
Vital Signs 11/24/24 08:04 Height 6 ft 5 in Weight 289 lb BMI 34.3 BP 150/88 H Blood Pressure Location Lt brachial Position Sitting Respiration 18 Pulse 74 Pulse Source Pulse Oximeter Temp 97.6 F Temp Source Temporal Artery Scan Pulse Oximetry (%) 97 Oxygen Delivery Method Room Air Intake Visit Reasons: JARETH- Dr. Romero Eligibility Consultant Required: No Accompanied by: Self / Same As Patient Allergies No Known Allergies (No Known Allergies*) Allergy (Verified 11/24/24 08:00) Tobacco use date assessed: 11/24/24 Dental Screening Dental Screen Date: 11/24/24 Did you have a dental visit in the last 12 months?: Yes Did you have a dental problem in the last 6 months where you did not have access to dental care?: No Was dental information given to patient?: Patient has dentist HPI HPI Comments History of Present Illness Details The patient is a 53-year-old male presenting with mechanical back pain. The back pain occurs daily and is described as originating above the right hip, frequently traveling across the lower back, and sometimes extending down the right leg. The patient reports a sensation similar to electric shocks, particularly upon movements such as bending or reaching for objects, which can immobilize him for three to four weeks. This pain exacerbates with prolonged sitting, particularly while working. Previously, the patient underwent L4 and L5 reconstruction due to fracture and subsequent bone removal for collapsing vertebrae approximately two years ago. Attempts to manage the pain include using heat and massage with moderate success; however, the pain persists daily without significant relief. The patient also desires to schedule a routine colonoscopy, his last being performed ten years [address] Dr. Gee. There is a pertinent family history of col on cancer and heart disease, compelling the patient to remain proactive in cancer screening procedures. Medical History: - Previous episode of major depressive d isorder, currently managed with psych otropic medications. - Hypertension, managed with losartan 50 mg. - History of high cholesterol. - Previous lumbar fracture and lumbar di sc disorder post-surgery. - No documented allergies. Surgical History: - L4-L5 lumbar spine reconstruction and bone removal. - Four arthroscopic knee surgeries. - Leg fracture repair with deepti placement approximately five years ago. Medications: - Losartan 50 mg for hypertension. - Bupropion 150 mg for depression. - Citalopram 40 mg for depression. Family History: - Father had colon cancer and prostate c ancer. - Mother had breast cancer and heart dis ease. - Numerous uncles and grandfather o f heart disease around age 50. Diagnostic Results: - Colonoscopy completed 10 years ago. Social History: - The patient is currently in the proces s of selling a house and relocating a business, resulting in increased workload and stress. - Reports alcohol consumption mainly dur ing weekends, averaging 6-8 drinks during occasions such as sporting events. - Exercises sporadically; typically trie s walking and biking to work but currently restricted due to moving-related activities. - Patient is non-smoker, denies use of m arijuana, cocaine, or any tobacco products. [facility] Medical History (Updated 11/24/24 @ 08:29 by Speedy Pham MD) Hyperlipidemia Alcohol use disorder Family history of colon cancer Bacterial conjunctivitis Cellulitis Hx of fracture of ankle Anxiety Gout GERD (gastroesophageal reflux disease) Obesity (BMI 30.0-34.9) Other chest pain HTN (hypertension) Colitis Gastroenteritis Epigastric abdominal pain Nocturia Back pain Depression Surgical History History of ankle surgery Hx of arthroscopy of right knee H/O colonoscopy Hx of right inguinal hernia repair Hx of lumbar discectomy Social History Housing: House Are you a primary out of school hours care worker to a significant other at home: No Patient Tobacco Use Status: Never used Tobacco e-Cigarette/Vaping Use: Never Used service: No Current occupational status: employed Current occupation: [employer] Questionnaire PHQ-9 Over the last 2 weeks, how often have you been bothered by any of the following problems? 1. Little interest or pleasure in doing things: not at all 2. Feeling down, depressed, or hopeless: not at all 3. Trouble falling or staying asleep, or sleeping too much: not at all 4. Feeling tired or having little energy: not at all 5. Poor appetite or overeating: not at all 6. Feeling bad about yourself - or that you are a failure or have let yourself or your family down: not at all 7. Trouble concentrating on things, such as reading the newspaper or watching television: not at all 8. Moving or speaking so slowly that other people could have noticed. Or the opposite - being so fidgety or restless that you have been moving around a lot more than usual: not at all 9. Thoughts that you would be better off or of hurting yourself in some way: not at all Total score: 0 Depression Screening Interpretation: Negative Depression Screening Done: Yes 97997 - PHQ-9 Billing: Yes Source: Developed by Drs. David Domingo, Betty Suazo, Boris Jimenez and colleagues, with an educational radha from [employer]. Thrive Questionnaire Date Thrive assessed: 11/24/24 I am a: Patient What is your living situation today?: I have a steady place to live Within the past 12 months, did the food you bought not last and you didn't have the money to get more?: Never true Within the past 12 months, did you worry whether your food would run out before you got money to buy more?: Never true Do you have trouble paying for medicines?: No Do you have trouble getting transportation to medical appointments?: No Do you have trouble paying your heating and electricity bill?: No Do you have trouble taking care of your child, family member or friend?: No Do you have trouble with day-to-day activities such as bathing, preparing meals, shopping, managing finances, etc.?: No Are you currently unemployed and looking for a job?: No Are you interested in more education?: No THRIVE Score: 0 AUDIT C Alcohol Use Questionnaire (AUDIT-C) 1. How often do you have a drink containing alcohol?: 2-4 times a month 2. How many drinks containing alcohol do you have on a typical day when you are drinking?: 7 to 9 3. How often do you have six or more drinks on one occasion?: Monthly Total Score: 7 Score Reviewed/Action Taken: Yes JUANA-7 AMB Questionnaire JUANA-7 Date JUANA - 7 assessed: 11/24/24 Feeling nervous, anxious, or on edge: 0 = Not at all Not being able to stop or control worryin = Not at all Worrying too much about different things: 0 = Not at all Trouble relaxin = Not at all Being so restless that it is hard to sit still: 0 = Not at all Becoming easily annoyed or irritable: 0 = Not at all Feeling afraid as if something awful might happen: 0 = Not at all Total JUANA-7 score (0-4 normal; 5-9 mild; 10-14 moderate; 15-21 severe): 0 Source: Developed by Drs. David Domingo, Betty Suazo, Boris Jimenez and colleagues, with an educational radha from [employer]. JUANA-7 Assessment Billing JUANA-7 Assessment Tool: JUANA-7 Assessment 50330 Review of Systems Const Details: - Musculoskeletal: Reports persistent lower back pain exacerbated by movement. - Cardiovascular: Denies chest pain, denies heart palpitations. - Neurological: Reports intermittent pain radiating to the leg but denies hea daches or vision changes. - Gastrointestinal: No recent colonoscopies, reports eating too quickly can trigger sneezing as a response. - Psychological: Reports managed depression under current medication but dislikes side effects. All systems reviewed & are unremarkable except as reviewed in HPI and above Physical exam (Primary Care) Vital Signs: Last Vital Signs Temp 97.6 F 11/24/24 08:04 Pulse 74 11/24/24 08:04 Resp 18 11/24/24 08:04 BP 150/88 H 11/24/24 08:04 Pulse Ox 97 11/24/24 08:04 Oxygen Delivery Method Room Air 11/24/24 08:04 BMI result Body Mass Index 34.3 Tobacco/Smoking Status: Tobacco use Status Tobacco use date assessed 11/24/24 11/24/24 08:03 Patient Tobacco Use Status Never used Tobacco 11/24/24 08:03 e-Cigarette/Vaping Use Never Used 11/24/24 08:07 Depression Screening Interpretation: Negative Const Other: General: +Alert and oriented, Well nourished, No acute distress. Eye: Pupils are equal, round and reactive to light, Intact accommodation, Extraocular movements are intact, Normal conjunctiva, Vision unchanged. HENT: Normocephalic, Atraumatic, Tympanic membranes are clear, Normal hearing, Oral mucosa is moist, No pharyngeal erythema, Ear canals patent. Respiratory: Lungs CTA bilaterally, No wheeze, Respirations are non-labored. Cardiovascular: Regular rate, Regular rhythm, S1 auscultated, S2 auscultated, No murmur, Good pulses equal in all extremities, Normal peripheral perfusion, No edema. Blood pressure is 150/80. Gastrointestinal: Soft, Non-tender, Non-distended, Normal bowel sounds, No organomegaly. Musculoskeletal: Normal range of motion, Normal strength, No tenderness, No swelling, No deformity, Normal gait. Reports back pain with history of L4, L5 reconstruction and surgery. Pain described as band-like, sometimes radiating above the hip and occasionally down the leg. Integumentary: Warm, Dry, [place], Intact. Neurologic: Alert, Oriented, Normal sensory, Normal motor function, No focal defects, Cranial Nerves II-XII are grossly intact, Normal deep tendon reflexes. Psychiatric: Cooperative, Appropriate mood & affect, Normal judgment. History of depression, currently managed with medication. Coding Level of Care Code Est Pt Level 4 (86739) Complex EM visit Add On G2211 Diagnoses Primary hypertension I10 Hypertension type: primary hypertension Recurrent major depressive disorder, in full remission F33.42 Depression Type: major depressive disorder Major depression recurrence: recurrent Active/Remission status: in full remission Family history of colon cancer Z80.0 Lumbar radiculopathy M54.16 Alcohol use disorder F10.90 Other hyperlipidemia E78.49 Hyperlipidemia type: other hyperlipidemia Additional Codes PHQ-9 - 33106 - PHQ-9 Billing: Yes ([id number]) JUANA-7 Assessment Billing - JUANA-7 Assessment Tool: JUANA-7 Assessment 97200 ([id number]) Assessment & Plan Assessment & Plan (1) HTN (hypertension): Comment: - Continue current regimen of losartan 50 mg, monitor blood pressure regularly. - Discussed potential need for dietary modifications and reduction in alcohol intake. Code(s): I10 - Essential (primary) hypertension Category: Medical Qualifiers: Hypertension type: primary hypertension Qualified Code(s): I10 - Essential (primary) hypertension (2) Depression: Comment: - Continue bupropion and citalopram without alteration to prevent recurrence of depression. - Coordinate a referral to psychiatry for potential medication optimization. Code(s): F32.A - Depression, unspecified Category: Medical Qualifiers: Depression Type: major depressive disorder Major depression recurrence: recurrent Active/Remission status: in full remission Qualified Code(s): F33.42 - Major depressive disorder, recurrent, in full remission (3) Family history of colon cancer: Comment: - Referred to GI - Last Colon 5 years ago Code(s): Z80.0 - Family history of malignant neoplasm of digestive organs Category: Medical (4) Lumbar radiculopathy: Comment: - Recommend starting gabapentin 100 mg three times daily for neuropathic pain. - Prescribed cyclobenzaprine 5 mg three times daily as needed for muscle spasms. - Advised application of heat and massage for symptomatic relief. - Suggest reducing sedentary periods and incorporating stretching exercises. Code(s): M54.16 - Radiculopathy, lumbar region Category: Medical (5) Alcohol use disorder: Comment: - Advised reduction of alcohol consumption to mitigate liver damage and cardiovascular risk. - AUDIT C Elevated to 7 - Encouraged cutting down intake to below six drinks per occasion. Code(s): F10.90 - Alcohol use, unspecified, uncomplicated Category: Medical (6) Hyperlipidemia: Comment: Lipid panel and elevated with a cholesterol over 200 Mr. However patient not on any statins. He does have a strong family history in addition to being hypertensive was admitted risk for cardiovascular morbidity and mortality. Advised to repeat lipid panel today, and based on results we will determine initiation of statins. Code(s): E78.5 - Hyperlipidemia, unspecified Category: Medical Qualifiers: Hyperlipidemia type: other hyperlipidemia Qualified Code(s): E78.49 - Other hyperlipidemia Plan: Healthcare maintenance: - Emphasis on lifestyle changes including exercise and diet modifications. - Recommended continuation of regular alcohol consumption reduction strategies. - Routine surveillance for colon cancer given familial history. - Regular cardiovascular risk assessment due to strong family history of heart disease. - Discussed laboratory screenings for health maintenance including lipid profile and liver function tests. Patient was informed and verbally consented to the use of an ambient scribe for clinic note documentation during this visit. Plan The visit covered multiple critical health aspects including managing existing conditions and preventative health measures. I provided a comprehensive plan to address the patient's ongoing mechanical back pain with gabapentin and cyclobenzaprine, emphasizing gradual dosage and using non-pharmaceutical methods like heat application. Drug interactions and potential side effects were also reviewed. Hypertension management will continue with prescribed losartan, and further cholesterol intervention may be proposed based on potential new lab findings. The patient's alcohol intake implications were highlighted with a clear recommendation for reduced quantity to minimize hepatotoxicity and cardiovascular risks. We discussed the need for updated gastrointestinal examinations through colonoscopy due to a significant family history of cancer. Finally, I also referred to the importance of psychotherapy continuity for the depressive condition to prevent recurrence, and a follow-up with psychiatry services was arranged to determine a more effective regimen. An x-ray of the lumbar region has also been ordered to update structural assessments. Orders: Orders Complete Blood Count Auto Diff Today Z76.89 - Persons encountering health services in other specified circumstances Lipid Panel Today Z76.89 - Persons encountering health services in other specified circumstances Syphilis Screen Today Z76.89 - Persons encountering health services in other specified circumstances TSH reflex Free T4 Today Z76.89 - Persons encountering health services in other specified circumstances XR lumbar spine 2-3V Today M54.16 - Radiculopathy, lumbar region Comprehensive Met. Panel Today Z76.89 - Persons encountering health services in other specified circumstances Hemoglobin A1c Today Z76.89 - Persons encountering health services in other specified circumstances Hepatitis A,B,C Profile Today Z76.89 - Persons encountering health services in other specified circumstances HIV Ab/Ag Today Z76.89 - Persons encountering health services in other specified circumstances Vitamin D 25-OH Total Today Z76.89 - Persons encountering health services in other specified circumstances Referrals Gastroenterology Referral Z80.0 - Family history of malignant neoplasm of digestive organs Psychiatry Referral F32.A - Depression, unspecified Medications: New gabapentin 100 mg PO TID 90 caps 0RF 30 days cyclobenzaprine 5 mg PO TID PRN 30 tabs 0RF muscle spasm 10 days Patient Instructions: - Start taking gabapentin 100 mg three times a day for back pain relief. - Use cyclobenzaprine 5 mg as needed for muscle spasms. - Apply heat and perform stretching techniques daily. - Limit alcohol consumption and avoid exceeding six drinks at any time. - Maintain scheduled physical activities and refrain from prolonged sitting. - Schedule a colonoscopy at the earliest opportunity. - Attend all scheduled lab tests and follow up as instructed. - Continuously take prescribed medications without alteration.
[2024-11-24 08:04] VITALS: BP 150/88; PULSE 74; RESP 18; TEMP 36.4; O2SAT 97; BMI 34.3
--- OUTSIDE RECORDS SUMMARY | 2024-11-24 08:06 | XMS_ITS | Patient Health Record ---
Author Organization [facility] Address [address] [place] [address] Care Team Providers Care [employer] Web Developer Name Role Phone Nick (RETIRED) Leon ANDRES Primary Care Provide r Unavailable Gee David Unavailable [phone] Reason For Referral No Information Medications Medication SIG (Take, Route, Frequency, Duration) Notes Start Date End Date Status Naprosyn Active Problems Problem Type SNOMED Code ICD Code Onset Dates Problem Status W/U Status Risk Notes Problem Diarrhea (26168947) Diarrhea (787.91) Active co nfirmed Problem Digestive system symptom (680446349) Other symptoms involving digestive system (787.99) Active confirmed Problem Right lower quadrant pain (052962697) Abdominal pain, right lower quadrant (789.03) Active confirmed Problem Imaging of gastrointestinal tract abnormal (604140859) Nonspecific abnormal findings on radiological and other examination of gastrointestinal tract (793.4) Active confirmed Plan Of Treatment Pending Test Test Name Order Date CBC with MANUAL DIFFERENTIAL 12/05/2010 Future Test Test Name Order Date COLONOSCOPY 12/05/2010 Insurance Providers Payer Name Payer Address Payer Phone Subscriber Number Group Number Insured Name Patient Relationship to Insured Coverage Start Date Coverage End Date [facility] [address] [place] [address] [id number] LEEANNA CAAL Self - patient is the insured Medical (General) History Medical History History ICD Code Denies OR,DM,CVA,Lung disease,renal dise ase colonoscopy 12-08-2010 Surgical History Surgery Date(Month/Year) back surgery knee surgery
== END 2024-11-24 08:30 | disposition home or self-care (01) ==
LOC: HO.HMCHD 07:59
PROVIDERS: PCP Student in an Organized Health Care Education/Training Program; Visit Provider Student in an Organized Health Care Education/Training Program
DX: I10 Essential (primary) hypertension (principal); F33.42 Major depressive disorder, recurrent, in full remission; Z80.0 Family history of malignant neoplasm of digestive organs; M54.16 Radiculopathy, lumbar region; F10.90 Alcohol use, unspecified, uncomplicated; E78.49 Other hyperlipidemia

== ENCOUNTER 2024-11-24 08:33 | Outpatient (REF) | payer BC, SELFPAY ==
[2024-11-24 11:16] LABS: MANUAL DIFF FLAG NO
[2024-11-24 11:26] LABS: Alanine Aminotransferase 47 U/L (0-40); Albumin Level 4.4 g/dL (3.5-5.0); Alkaline Phosphatase 78 U/L (39-117); Anion Gap 12 (12-20); Aspartate Amino Transferase 34 U/L (5-37); Blood Urea Nitrogen 12 mg/dL (9-16); Calcium 9.6 mg/dL (8.4-10.2); Carbon Dioxide 25 mmol/L (22-29); Chloride 106 mmol/L (96-108); Cholesterol 234 mg/dL (<200); Estimated Glomerular Filt Rate > 60; HDL Cholesterol 57 mg/dL (>40); Potassium 4.2 mmol/L (3.3-5.1); Sodium 139 mmol/L (135-145); Total Protein 7.4 g/dL (6.5-8.0); Triglycerides 149 mg/dL (<150)
[2024-11-24 11:45] LABS: Hematocrit 45.9 % (42.0-52.0); Hemoglobin 15.7 g/dl (14.0-18.0); Imm Gran Abs Auto 0.03 X10*3/uL (0.00-0.03); Imm Gran Pct Auto 0.3 % (0.0-0.4); Lymphocytes Absolute Auto 1.7 X10*3/uL (1.2-4.9); Mean Corpuscular HGB Conc 34.2 g/dl (31.0-36.0); Mean Corpuscular Hemoglobin 29.6 pg (27.0-33.0); Mean Corpuscular Volume 86.4 fL (80.0-98.0); NRBC Abs Auto 0.000 X10*3/uL (0.0-0.012); NRBC Pct Auto 0.0 /100WBC (0.0-0.2); Platelet Count 347 X10*3/uL (160-400); Red Blood Count 5.31 X10*6/uL (4.60-5.80); White Blood Count 8.8 X10*3/uL (4.8-10.8)
[2024-11-24 12:25] LABS: HBS Num1 7.96 mIU/mL (0-7.99); HBc Num1 0.10 S/CO (0.00-0.79); HBsAGNum1 0.39 S/CO (0.00-0.99); HIV Num 1 0.06 S/CO (0.00-0.99); Hepatitis A Antibody IgM 0.17 Index (0-0.79); Hepatitis B Surface Antigen Negative (Negative); Syphilis Screen Nonreactive (Nonreactive); ~HepC Num1 0.15 S/CO (0.00-0.79); ~Hepatitis A Antibody IgM Nonreactive (Nonreactive); ~Hepatitis B Surface Antibody NONREACTIVE (Nonreactive); ~Hepatitis C Antibody Nonreactive (Nonreactive)
== END 2024-11-24 08:34 | disposition home or self-care (01) ==
LOC: HO.10HDL 08:33
PROVIDERS: Visit Provider Student in an Organized Health Care Education/Training Program
DX: Z76.89 Persons encountering health services in other specified circumstances (principal); I10 Essential (primary) hypertension; F33.42 Major depressive disorder, recurrent, in full remission; F10.90 Alcohol use, unspecified, uncomplicated; E78.49 Other hyperlipidemia; M54.16 Radiculopathy, lumbar region; Z80.0 Family history of malignant neoplasm of digestive organs
CPT/HCPCS: 36415; 80053; 80061; 82306; 83036; 84443; 85025; 86704; 86706; 86709; 86780; 86803; 87340; 87389; 96127

== ENCOUNTER 2025-01-05 14:34 | Outpatient (AMB) | payer BC, SELFPAY ==
--- NOTE | 2025-01-05 13:02 | A.OFFPC_ITS ---
Vital Signs 01/05/25 14:31 Height 6 ft 5 in Weight 289 lb BMI 34.3 BP 144/86 H Blood Pressure Location Lt brachial Position Sitting Respiration 18 Pulse 70 Pulse Source Pulse Oximeter Temp 97.6 F Temp Source Temporal Artery Scan Pulse Oximetry (%) 96 Oxygen Delivery Method Room Air Intake Visit Reasons: Left foot cellulitis? Sample Builder Required: No Accompanied by: Self / Same As Patient Allergies No Known Allergies (No Known Allergies*) Allergy (Verified 01/05/25 13:02) Tobacco use date assessed: 11/24/24 Dental Screening Dental Screen Date: 11/24/24 HPI HPI Comments History of Present Illness Details The patient is a 54-year-old male presenting with left foot pain and swelling. The symptoms began after playing golf on Saturday, and he initially suspected a sprain, but the pain has progressively worsened each day. He reports the redness has also increased over the last two days. He denies any fevers, chills, or known trauma. He has a history of cellulitis a couple of years ago, during which his foot became extremely painful and swelled significantly. The patient also has a history of back spasms, which have been well-controlled with cyclobenzaprine, reporting no recent weekly episodes since starting the medication. The patient started taking atorvastatin a few weeks ago and reports no changes or side effects. He continues to take bupropion and citalopram for his mood, which he describes as not bad but with occasional depressive swings. He reports continued aggressive alcohol use that has not changed. Medical History: - Cellulitis: Patient had an episode a c ouple of years ago. - Back spasms - Depression - Hyperlipidemia: Implied by use of ator vastatin. - Hypertension: Described as borderline. - Alcohol abuse: Described as - aggressive drinking. - Onychomycosis: Patient has discolored toenails and fungus. Medications: - Atorvastatin: for hyperlipidemia, repo rts good tolerance. - Bupropion: for mood. - Citalopram: for mood. - Cyclobenzaprine: for back spasms, repo rts it has been effective. Social History: - Substance Use: Reports aggressive alco hol use which has not changed. - Exercise: Plays golf. [facility] Medical History (Updated 01/05/25 @ 14:47 by Speedy Pham MD) Onychomycosis Cellulitis of left foot Left ankle sprain Hyperlipidemia Alcohol use disorder Family history of colon cancer Bacterial conjunctivitis Cellulitis Hx of fracture of ankle Anxiety Gout GERD (gastroesophageal reflux disease) Obesity (BMI 30.0-34.9) Other chest pain HTN (hypertension) Colitis Gastroenteritis Epigastric abdominal pain Nocturia Back pain Depression Surgical History History of ankle surgery Hx of arthroscopy of right knee H/O colonoscopy Hx of right inguinal hernia repair Hx of lumbar discectomy Social History Housing: House Are you a primary career and technology education teacher to a significant other at home: No Patient Tobacco Use Status: Never used Tobacco e-Cigarette/Vaping Use: Never Used service: No Current occupational status: employed Current occupation: [employer] Questionnaire PHQ-9 Over the last 2 weeks, how often have you been bothered by any of the following problems? 1. Little interest or pleasure in doing things: not at all 2. Feeling down, depressed, or hopeless: not at all 3. Trouble falling or staying asleep, or sleeping too much: not at all 4. Feeling tired or having little energy: not at all 5. Poor appetite or overeating: not at all 6. Feeling bad about yourself - or that you are a failure or have let yourself or your family down: not at all 7. Trouble concentrating on things, such as reading the newspaper or watching television: not at all 8. Moving or speaking so slowly that other people could have noticed. Or the opposite - being so fidgety or restless that you have been moving around a lot more than usual: not at all 9. Thoughts that you would be better off or of hurting yourself in some way: not at all Total score: 0 Depression Screening Interpretation: Negative Depression Screening Done: Yes Source: Developed by Drs. David Domingo, Betty Suazo, Boris Jimenez and colleagues, with an educational radha from [employer]. Thrive Questionnaire Date Thrive assessed: 01/05/25 I am a: Patient What is your living situation today?: I have a steady place to live Within the past 12 months, did the food you bought not last and you didn't have the money to get more?: Never true Within the past 12 months, did you worry whether your food would run out before you got money to buy more?: Never true Do you have trouble paying for medicines?: No Do you have trouble getting transportation to medical appointments?: No Do you have trouble paying your heating and electricity bill?: No Do you have trouble taking care of your child, family member or friend?: No Do you have trouble with day-to-day activities such as bathing, preparing meals, shopping, managing finances, etc.?: No Are you currently unemployed and looking for a job?: No Are you interested in more education?: No THRIVE Score: 0 AUDIT C Alcohol Use Questionnaire (AUDIT-C) 1. How often do you have a drink containing alcohol?: 4 or more times a week 2. How many drinks containing alcohol do you have on a typical day when you are drinking?: 3 or 4 3. How often do you have six or more drinks on one occasion?: Monthly Total Score: 7 JUANA-7 AMB Questionnaire JUANA-7 Date JUANA - 7 assessed: 01/05/25 Feeling nervous, anxious, or on edge: 0 = Not at all Not being able to stop or control worryin = Not at all Worrying too much about different things: 0 = Not at all Trouble relaxin = Not at all Being so restless that it is hard to sit still: 0 = Not at all Becoming easily annoyed or irritable: 0 = Not at all Feeling afraid as if something awful might happen: 0 = Not at all Total JUANA-7 score (0-4 normal; 5-9 mild; 10-14 moderate; 15-21 severe): 0 Source: Developed by Drs. David Domingo, Betty Suazo, Boris Jimenez and colleagues, with an educational radha from [employer]. JUANA-7 Assessment Billing JUANA-7 Assessment Tool: JUANA-7 Assessment 89959 Review of Systems Narrative - Constitutional: Denies fevers or chills. - Musculoskeletal: Reports progressively worsening pain in the left foot over several days, making it painful to walk. - Denies recent falls or trauma. - Integumentary: Reports redness and swelling in the left foot, with the redness spreading over the last two days. - Denies any wounds between his toes. - Psychiatric: Reports his mood is not bad but acknowledges occasional depression swings. All systems reviewed & are unremarkable except as reviewed in HPI and above Physical exam (Primary Care) Vital Signs: Last Vital Signs Temp 97.6 F 01/05/25 14:31 Pulse 70 01/05/25 14:31 Resp 18 01/05/25 14:31 BP 144/86 H 01/05/25 14:31 Pulse Ox 96 01/05/25 14:31 Oxygen Delivery Method Room Air 01/05/25 14:31 BMI result Body Mass Index 34.3 Tobacco/Smoking Status: Tobacco use Status Tobacco use date assessed 11/24/24 01/05/25 13:02 Patient Tobacco Use Status Never used Tobacco 01/05/25 13:02 e-Cigarette/Vaping Use Never Used 01/05/25 13:02 Depression Screening Interpretation: Negative Thrive Assessment: Date of Thrive Assessment Date Thrive assessed 11/24/24 01/05/25 13:02 Narrative General: +Alert and oriented, Well nourished, No acute distress. Eye: Pupils are equal, round and reactive to light, Intact accommodation, Extraocular movements are intact, Normal conjunctiva, Vision unchanged. HENT: Normocephalic, Atraumatic, Tympanic membranes are clear, Normal hearing, Oral mucosa is moist, No pharyngeal erythema, Ear canals patent. Respiratory: Lungs CTA bilaterally, No wheeze, Respirations are non-labored. Cardiovascular: Regular rate, Regular rhythm, S1 auscultated, S2 auscultated, No murmur, Good pulses equal in all extremities, Normal peripheral perfusion, No edema. Gastrointestinal: Soft, Non-tender, Non-distended, Normal bowel sounds, No organomegaly. Musculoskeletal: Normal range of motion, Normal strength, Tenderness in the left foot, Swelling in the left ankle, No deformity, Painful gait. Integumentary: Warm, Dry, [place], Intact, Redness and swelling in the left foot. Neurologic: Alert, Oriented, Normal sensory, Normal motor function, No focal defects, Cranial Nerves II-XII are grossly intact, Normal deep tendon reflexes. Psychiatric: Cooperative, Appropriate mood & affect, Normal judgment, Reports occasional depression swings. Coding Level of Care Code Est Pt Level 4 (65608) Complex EM visit Add On G2211 Diagnoses Left ankle sprain S93.402A Encounter type: initial encounter Cellulitis of left foot L03.116 Onychomycosis B35.1 Primary hypertension I10 Hypertension type: primary hypertension Other hyperlipidemia E78.49 Hyperlipidemia type: other hyperlipidemia Recurrent major depressive disorder, in full remission F33.42 Depression Type: major depressive disorder Major depression recurrence: recurrent Active/Remission status: in full remission Alcohol use disorder F10.90 Lumbar radiculopathy M54.16 Additional Codes JUANA-7 Assessment Billing - JUANA-7 Assessment Tool: JUANA-7 Assessment 90194 ([id number]) Assessment & Plan Assessment & Plan (1) Left ankle sprain: Comment: - The clinical presentation of swelling localized to the ankle and diffuse pain is more consistent with a sprain than cellulitis. - The plan includes icing the foot, elevation, and wrapping it with a bandage. Code(s): S93.402A - Sprain of unspecified ligament of left ankle, initial encounter Category: Medical Qualifiers: Encounter type: initial encounter (2) Cellulitis of left foot: Comment: - While less likely due to the absence of significant warmth and a clear demarcation, it remains a differential diagnosis. - Due to the patient's history and the presence of open lesions between the toes which could serve as a portal of entry for bacteria, a 7-day course of Keflex will be prescribed empirically. Code(s): L03.116 - Cellulitis of left lower limb Category: Medical (3) Onychomycosis: Comment: - The patient has discolored toenails and evidence of foot fungus, with associated open wounds between the toes. - The patient was informed that definitive treatment often involves nail removal. Code(s): B35.1 - Tinea unguium Category: Medical (4) HTN (hypertension): Comment: - Blood pressure is borderline. - The patient has been instructed to monitor his blood pressure at home and bring a log to his next appointment. Code(s): I10 - Essential (primary) hypertension Category: Medical Qualifiers: Hypertension type: primary hypertension Qualified Code(s): I10 - Essential (primary) hypertension (5) Hyperlipidemia: Comment: - Based on lipid panel, atorvastatin 20mg QHS started after last visit, with no ADRs Code(s): E78.5 - Hyperlipidemia, unspecified Category: Medical Qualifiers: Hyperlipidemia type: other hyperlipidemia Qualified Code(s): E78.49 - Other hyperlipidemia (6) Depression: Comment: - The patient's mood is stable on his current regimen of bupropion and citalopram, Code(s): F32.A - Depression, unspecified Category: Medical Qualifiers: Depression Type: major depressive disorder Major depression recurrence: recurrent Active/Remission status: in full remission Qualified Code(s): F33.42 - Major depressive disorder, recurrent, in full remission (7) Alcohol use disorder: Comment: - The patient reports continued aggressive alcohol consumption. - He was counseled on the safety risks of combining alcohol with cyclobenzaprine and the importance of reducing his intake. Code(s): F10.90 - Alcohol use, unspecified, uncomplicated Category: Medical (8) Lumbar radiculopathy: Comment: - Reports complete resolution in back spams since initiating cyclobenzaprine however advised him if he doesn't cut down on alcohol intake we will not be able to prescribe anymore. Code(s): M54.16 - Radiculopathy, lumbar region Category: Medical Plan: Health Maintenance: - Instructed the patient to monitor blood pressure at home and maintain a log. - Counseled on reducing alcohol intake due to safety concerns with cyclobenzaprine. Patient was informed and verbally consented to the use of an ambient scribe for clinic note documentation during this visit. Plan I discussed with the patient that his symptoms of left foot swelling and pain are more characteristic of a sprain rather than cellulitis, given the swelling is more prominent around the ankle and lacks the warmth and well-demarcated redness typical of a skin infection. However, I noted my concern for a potential secondary infection due to the presence of open lesions between his toes, likely from a fungal infection, and his history of cellulitis. For this reason, I am providing a precautionary 7-day course of Keflex, although I explained it may not resolve his primary symptoms if they are solely from a sprain. I recommended he treat the injury as a sprain with ice, elevation, and a compression wrap. We reviewed his other health matters, including his borderline blood pressure, and I instructed him to monitor it at home. I strongly advised him to reduce his alcohol intake, explaining the safety risk of mixing it with his cyclobenzaprine prescription. The patient has a follow-up visit already scheduled. Medications: New cephalexin 500 mg PO QID 28 caps 0RF 7 days Patient Instructions: - Your left foot pain is most likely a sprain. - Please care for it by resting it, applying ice, keeping it elevated, and wrapping it with a bandage. - I have sent a prescription for an antibiotic, Keflex, to your pharmacy for you to take for 7 days. - This is a precaution because of some open skin on your foot. - Continue to take your other medications for mood and back spasms as prescribed. - Please start checking your blood pressure at home with your machine and keep a log to bring to your next visit. - It is very important to reduce your alcohol drinking. - Mixing alcohol with your muscle relaxer, cyclobenzaprine, is not safe. - We will see you at your scheduled follow-up appointment.
[2025-01-05 14:31] VITALS: BP 144/86; PULSE 70; RESP 18; TEMP 36.4; O2SAT 96; BMI 34.3
--- OUTSIDE RECORDS SUMMARY | 2025-01-05 16:15 | XMS_ITS | Patient Health Record ---
Author Organization [facility] Address [address] [place] [address] Care Team Providers Care Poker Supervisor Name Role Phone RICO WILSON M.D. Primary Care Provider Ophelia Gee David Unavailable [phone] Reason For Referral No Information Medications Medication SIG (Take, Route, Frequency, Duration) Notes Start Date End Date Status Naprosyn Active Problems Problem Type SNOMED Code ICD Code Onset Dates Problem Status W/U Status Risk Notes Problem Diarrhea (02840444) Diarrhea (787.91) Active co nfirmed Problem Digestive system symptom (940243840) Other symptoms involving digestive system (787.99) Active confirmed Problem Right lower quadrant pain (531093841) Abdominal pain, right lower quadrant (789.03) Active confirmed Problem Imaging of gastrointestinal tract abnormal (564131872) Nonspecific abnormal findings on radiological and other examination of gastrointestinal tract (793.4) Active confirmed Plan Of Treatment Pending Test Test Name Order Date CBC with MANUAL DIFFERENTIAL 12/05/2010 Future Test Test Name Order Date COLONOSCOPY 12/05/2010 Next Appt Details Provider Name:David Boyer Gerard , 03/23/2025 02:20:00 PM, [address], [address], [place], [address], Insurance Providers Payer Name Payer Address Payer Phone Subscriber Number Group Number Insured Name Patient Relationship to Insured Coverage Start Date Coverage End Date [facility] [address] [place] [address] [phone] [id number] LEEANNA NOEL Self - patient is the insured Medical (General) History Medical History History ICD Code Denies GA,DM,CVA,Lung disease,renal dise ase colonoscopy 12-08-2010 Surgical History Surgery Date(Month/Year) back surgery knee surgery
== END 2025-01-05 14:48 | disposition home or self-care (01) ==
LOC: HO.HMCHD 14:34
PROVIDERS: PCP Student in an Organized Health Care Education/Training Program; Visit Provider Student in an Organized Health Care Education/Training Program
DX: S93.402A Sprain of unspecified ligament of left ankle, initial encounter (principal); L03.116 Cellulitis of left lower limb; B35.1 Tinea unguium; I10 Essential (primary) hypertension; E78.49 Other hyperlipidemia; F33.42 Major depressive disorder, recurrent, in full remission; F10.90 Alcohol use, unspecified, uncomplicated; M54.16 Radiculopathy, lumbar region

== ENCOUNTER → 2025-01-05 14:34 | Outpatient (BNVA) | payer BC, SELFPAY | PROVIDERS: PCP Student in an Organized Health Care Education/Training Program; Visit Provider Student in an Organized Health Care Education/Training Program | DX: S93.402A Sprain of unspecified ligament of left ankle, initial encounter (principal); L03.116 Cellulitis of left lower limb; B35.1 Tinea unguium; I10 Essential (primary) hypertension; E78.49 Other hyperlipidemia; F33.42 Major depressive disorder, recurrent, in full remission; F10.90 Alcohol use, unspecified, uncomplicated; M54.16 Radiculopathy, lumbar region; X58.XXXA Exposure to other specified factors, initial encounter; Y93.53 Activity, golf; Y92.9 Unspecified place or not applicable; Y99.9 Unspecified external cause status; Z13.31 Encounter for screening for depression; Z13.39 Encounter for screening examination for other mental health and behavioral disorders | CPT/HCPCS: 96127 ==